=== PATIENT | male | born 1975 | race Caucasian/White ===

== ENCOUNTER 2017-12-17 13:19 | Emergency (ER) | payer OTHER ==
[~2017-12-17] VITALS: Ht 182.9 cm; Wt 76.5 kg
[~2017-12-17 13:19] MED LIST: METH750T2 PO; VICOTAB4 PO; Z.0.NO CURRENT MEDS
[2017-12-17 13:35] VITALS: BP 141/83; PULSE 71; RESP 16; TEMP 98.1; O2SAT 98
--- NOTE | 2017-12-17 13:51 | PD ---
HPI Chief Complaint: Laceration/Skin Injury Time Seen by Provider: 13:45 Travel History International Travel<30 days: No Contact w/Intl Traveler<30days: No Traveled to known affect area: No History of Present Illness HPI [id number] male presents for evaluation of dorsal left wrist laceration. It was sustained prior to arrival when the grinding wheel hit his wrist. He has mild pain with associated bleeding. Denies pulsating blood, numbness, weakness, range of motion limitation. His last tetanus vaccination is unknown. No other complaints. [facility] Past Medical History Diminished Hearing: No Past Surgical History Tonsillectomy: Yes Social History Alcohol Use: Yes (BEER [employer]LY) Tobacco Use: No Substance Use: No Allergies-Medications (Allergen,Severity, Reaction): Coded Allergies: penicillin G (Unverified Allergy, Mild, 12/17/17) Reported Meds & Prescriptions Reported Meds & Active Scripts Active Vicoprofen (Hydrocodone Bitartrate/Ibuprofen) 7.5 Mg/200 Mg Tab 1 Tab PO QIDPRN FOR PAIN Robaxin (Methocarbamol) 750 Mg Tab 750 Mg PO QIDPRN Reported No Current Meds (Miscellaneous Medication) [facility] [place] General / Constitutional: No: Fever, Chills Skin: Positive Other (positive for laceration, pain, bleeding) Neurologic: No: Weakness, Paresthesia Physical Exam Narrative GENERAL: Well-nourished male in no acute distress SKIN: Warm and dry. 2 cm laceration dorsal left wrist with no bleeding currently. HEAD: Atraumatic. Normocephalic. EYES: Pupils equal and round. No scleral icterus. No injection or drainage. ENT: No nasal bleeding or discharge. Mucous membranes pink and moist. NECK: Trachea midline. No JVD. CARDIOVASCULAR: Regular rate and rhythm. No murmur appreciated. RESPIRATORY: No accessory muscle use. Clear to auscultation. Breath sounds equal bilaterally. MUSCULOSKELETAL: No obvious deformities. The patient maintains full range of motion of the left wrist, fingers of the left hand. Capillary refill is less than 2 seconds in all digits of the left hand. Distal sensation preserved in the median, radial, ulnar nerve distributions. NEUROLOGICAL: Awake and alert. No obvious cranial nerve deficits. Motor grossly within normal limits. Normal speech. Data Data Last Documented VS Vital Signs Date Time Temp Pulse Resp B/P (MAP) Pulse Ox O2 Delivery O2 Flow Rate FiO2 12/17/17 13:35 98.1 71 16 141/83 (102) 98 Orders Orders Lidocai-Epi 1%-1:100,000 Inj (Xylocaine- (12/17/17 14:00) Tetanus/Diphtheria Tox Adult (Tetanus/Di (12/17/17 14:00) Wrist, Limited (Ap&Lat) (12/17/17 ) Lidocai-Epi 1%-1:100,000 Inj (Xylocaine- (12/17/17 14:15) Ed Discharge Order (12/17/17 14:50) MDM Medical Decision Making Medical Screen Exam Complete: Yes Emergency Medical Condition: Yes Medical Record Reviewed: Yes Differential Diagnosis Cutaneous laceration, open fracture, foreign body, tendon injury, neurovascular injury Narrative Course X-ray imaging will be obtained. Tetanus status updated. The laceration will be thoroughly irrigated and explored prior to repair, he verbally consents. X- rays revealed a small superficial foreign body. This was irrigated out. The contaminated subcutaneous tissue was sharply debrided prior to closure. The patient is allergic to penicillin with an unknown type of reaction. He will be discharged with a short course of clindamycin. Procedures Procedure Narrative LACERATION LOCATION: Left wrist LENGTH: 2 cm NUMBER OF STITCHES/SARAH: 5 REPAIR: The area of the laceration was prepped with Betadine and sterilely draped. The laceration was infiltrated with 1% lidocaine with epinephrine. The wound was copiously irrigated and explored without evidence of foreign body , tendon injury or neurovascular injury. The wound was closed using 5-0 Prolene simple interrupted. This was a single layer repair. A sterile dressing was applied. The patient was advised to keep the dressing clean and dry. Patient tolerated the procedure well. Diagnosis Primary Impression: Laceration of left wrist Additional Instructions: Medication as prescribed. Wash the wounds daily with soap and water and apply antibiotic cream. Return in 10-14 days for suture removal. Med/Other Pt SpecificInfo: Prescription(s) given, Wound Care Scripts Clindamycin (Clindamycin) 300 Mg Cap 300 MG PO TID for Infection for 5 Days, CAP 0 Refills Prov: Vita Lund MD 12/17/17 Disposition: 01 DISCHARGE HOME Condition: Stable Abhishek Stewart Dec 17, 2017 13:51
[2017-12-17] MEDS ORDERED: TETANUS/DIPHTHERIA TOXOID ADULT 0.5 ML VIAL IM ONE (14:00)
[2017-12-17] MEDS ORDERED: LIDOCAINE 1%/EPINEPHrine 1:100,000 SOLN 20 ML VIAL INFIL ONE (14:00)
--- NOTE | 2017-12-17 14:03 | RADRPT ---
EXAM DATE/TIME: 12/17/2017 13:51 [place] COMPARISON: No previous studies available for comparison. INDICATIONS : Left wrist laceration post using grinding wheel. MEDICAL HISTORY : None. SURGICAL HISTORY : None. ENCOUNTER: Initial ACUITY: 1 day PAIN SCORE: 9/10 LOCATION: Left posterior wrist FINDINGS: A limited two-view examination of the left wrist demonstrates no soft tissue swelling, dislocation, o r fracture. There is a small 1 mm high density metallic foreign body along the dorsal skin surface projected over the ischial radial ulnar joint on the AP view. The joint spaces are maintained. Bony mineralization is normal. CONCLUSION: Small 1 mm apparent metallic foreign body. Rodger Brizuela MD on December 17, 2017 at 13:59 Board Certified Radiologist. This report was verified electronically.
[2017-12-17] MEDS ORDERED: LIDOCAINE 1%/EPINEPHrine 1:100,000 SOLN 50 ML VIAL INFIL ONE (14:15)
[2017-12-17] MEDS ORDERED: CLIN300C5 PO (14:52)
== END 2017-12-17 15:26 | disposition home or self-care (01) ==
LOC: PHEFT 13:19
DX: S61.512A Laceration without foreign body of left wrist, initial encounter (principal); W29.8XXA Contact with other powered hand tools and household machinery, initial encounter; Z23 Encounter for immunization
CPT/HCPCS: 12001; 73100; 90471; 90714